=== PATIENT | female | born 1960 | race American Indian/Alaskan Native ===

== ENCOUNTER → 2025-01-31 | Day surgery (SDC) | payer MEDICAID, MEDICARE ==
[~2025-01-31] MED LIST: Lactated Ringers 1,000 ML IV SCH
== END ==
LOC: JP.SDS 07:30
PROVIDERS: ATTEND Surgery
DX: Z12.11 Encounter for screening for malignant neoplasm of colon (principal); Z53.8 Procedure and treatment not carried out for other reasons

== ENCOUNTER 2025-02-07 09:05 | Day surgery (SDC) | payer MEDICARE ==
[2025-02-07] MEDS: Lactated Ringers 1,000 ML IV SCH (09:57)
[2025-02-07] MEDS ORDERED: Midazolam 1 MG/ML 2 ML SDV ONE (10:00)
[2025-02-07] MEDS ORDERED: fentaNYL 100 MCG/2 ML SDV ONE (10:00)
[2025-02-07] MEDS ORDERED: Propofol 200 MG/20 ML SDV ONE ×2 (10:00→11:33)
== END 2025-02-07 13:02 | disposition home or self-care (01) ==
LOC: JP.SDS 09:05
PROVIDERS: ATTEND Surgery
DX: Z12.11 Encounter for screening for malignant neoplasm of colon (principal); D12.0 Benign neoplasm of cecum; K57.30 Diverticulosis of large intestine without perforation or abscess without bleeding; Z88.0 Allergy status to penicillin
CPT/HCPCS: 00811; 45385; J2250; J2704; J3010; J7120